=== PATIENT | female | born 1980 | race Hispanic/Latino ===

== ENCOUNTER 2019-11-16 12:50 | Emergency (ER) | payer SELFPAY ==
[2019-11-16] MEDS: KETOROLAC TROMETHAMINE INJ 60 MG/2 ML VIAL IM ONE (13:04)
[2019-11-16] MEDS: HYDROcodone 10MG/APAP 325MG 1 EA TAB PO ONE ×2 (13:11→13:14)
[2019-11-16] MEDS: CYCLOBENZAPRINE TAB (ER DISP) 10 MG TAB PO ONE (13:11)
[2019-11-16] MEDS: CYCLOBENZAPRINE HCL 10 MG TAB PO ONE (13:16)
--- NOTE | 2019-11-16 13:31 | ED.PDOC ---
History of Present Illness - General Chief Complaint: Lower Extremity Injury Stated Complaint: left buttocks and leg pain Time Seen by Provider: 11/16/19 12:55 Source: patient Additional Information: 39yo F who presents with L leg pain. The pain start in her buttock and radiates around to her thigh and knee. The pain is stabbing and shooting in nature. No associated weakness or numbness. No known injury. Pt reports no prior hx of similar pain. No recent illness or sick contacts. No significant past medical issues. No other reported issues. - History of Present Illness Severity: moderate Improving Factors: nothing Worsening Factors: movement Allergies/Adverse Reactions: Allergies NO KNOWN ALLERGY Allergy (Verified 11/16/19 13:00) Home Medications: Ambulatory Orders Acetaminophen W/ Codeine [Tylenol w/Codeine 300-30 mg] 1 tab PO Q6HR PRN #12 tab 11/16/19 Cyclobenzaprine HCl [Flexeril] 10 mg PO Q6HR PRN #20 tab 11/16/19 Ibuprofen [Motrin] 600 mg PO Q8HR PRN #20 tab 11/16/19 Review of Systems - Review of Systems Constitutional: Denies: chills, fever EENTM: States: no symptoms reported Respiratory: Denies: cough, short of breath Cardiology: Denies: chest pain, palpitations Gastrointestinal/Abdominal: States: nausea. Denies: abdominal pain, vomiting Genitourinary: States: no symptoms reported Musculoskeletal: States: muscle pain. Denies: back pain Skin: Denies: change in color, rash Neurological: Denies: headache, numbness, weakness Hematologic/Lymphatic: States: no symptoms reported Past Medical History (General) - Patient Medical History Hx Asthma: No Hx Cardiac Disorders: No Hx Hypertension: No Surgical History: cholecystectomy - Vaccination History Hx Tetanus, Diphtheria Vaccination: No Hx Influenza Vaccination: No Hx Pneumococcal Vaccination: No Immunizations Up to Date: No - Social History Hx Tobacco Use: No Hx Alcohol Use: No Hx Substance Use: No Hx Substance Use Treatment: No Hx Depression: Yes - Female History Patient is a Female of Child Bearing Age (10 -59 yrs old): Yes Family Medical History - Family History Mother Living Status: Still Living Hx Family Diabetes: Yes Physical Exam - Physical Exam General Appearance: Alert, Well Developed Ears, Nose, Throat: hearing grossly normal, normal ENT inspection Neck: non-tender, full range of motion, supple, normal inspection Respiratory: chest non-tender, normal breath sounds, no respiratory distress Cardiovascular/Chest: normal peripheral pulses, no edema Gastrointestinal/Abdominal: normal bowel sounds, non tender, soft Back Exam: normal inspection, no vertebral tenderness Extremity: normal range of motion, no calf tenderness, other - Tenderness in L buttock radiating into the L thigh and knee. No edema. Neurologic: no motor/sensory deficits, alert, normal mood/affect, oriented x 3 Skin Exam: normal color, warm/dry Progress - Progress Progress: DDX: Sciatica, disc problem, strain, sprain, neuralgia, spasm; lower suspicion for DVT or vascular issue. Zeyad Mercado MD. #[id number] 11/16/19 14:36 Pt with continued discomfort. Will add additional medication and continue to monitor. 11/16/19 15:00 Patient reports improved pain at this time. NV intact. Ambulatory. Suspect sciatica at this time. Results discussed in detail including s/s that warrant return. We discussed pathways for follow up. All questions answered. It was a pleasure to care for this patient today. - Results/Orders Results/Orders: Last Vital Signs Temp 98.4 F 11/16/19 15:02 Pulse 73 11/16/19 15:02 Resp 20 11/16/19 15:02 BP 130/78 11/16/19 15:02 Pulse Ox 98 11/16/19 15:02 Departure - Departure Clinical Impression: Sciatic leg pain Time of Disposition: 14:47 Disposition: Discharge to Home or Self Care Condition: Fair Departure Forms: ED Discharge - Pt. Copy, Patient Portal Self Enrollment Instructions: DI for Leg Pain, Sciatica (DC) Prescriptions: Acetaminophen W/ Codeine [Tylenol w/Codeine 300-30 mg] 1 tab PO Q6HR PRN #12 tab PRN Reason: Pain Cyclobenzaprine HCl [Flexeril] 10 mg PO Q6HR PRN #20 tab PRN Reason: Pain Ibuprofen [Motrin] 600 mg PO Q8HR PRN #20 tab PRN Reason: Pain Home Medications: Ambulatory Orders Acetaminophen W/ Codeine [Tylenol w/Codeine 300-30 mg] 1 tab PO Q6HR PRN #12 tab 11/16/19 Cyclobenzaprine HCl [Flexeril] 10 mg PO Q6HR PRN #20 tab 11/16/19 Ibuprofen [Motrin] 600 mg PO Q8HR PRN #20 tab 11/16/19 Additional Instructions: Please follow up with a primary doctor for continued pain.
[2019-11-16] MEDS: MORPHINE SULFATE INJ 10 MG/ML VIAL IM ONE (14:06)
[2019-11-16 15:06] VITALS: BP 130/78; TEMP 98.4; O2SAT 98
== END 2019-11-16 15:06 | disposition home or self-care (01) ==
LOC: ER 12:50
DX: M54.32 Sciatica, left side (principal); M79.605 Pain in left leg
CPT/HCPCS: J1885; J2270

== ENCOUNTER → 2020-09-19 | Outpatient (CLI) | payer BC | LOC: YCFC.O 16:34 | PROVIDERS: ATTEND Nurse Practitioner | DX: Z20.828 Contact with and (suspected) exposure to other viral communicable diseases (principal) ==